=== PATIENT | female | born 1990 | race Two or more races ===

== ENCOUNTER 2019-01-17 20:41 | Emergency (ER) | payer OTHER ==
[2019-01-17 20:49] VITALS: BP 105/64; PULSE 100; TEMP 98.4; BMI 27.1
[2019-01-17] MEDS ORDERED: SODIUM CHLORIDE 0.9% 500 ML INFUS.BAG IV ONE (21:18)
[2019-01-17] MEDS ORDERED: ACETAMINOPHEN 325 MG TABLET (FP) PO ONE (21:18)
[2019-01-17 21:26] LABS: EOS % 2.4 % (0-4.5); HEMOGLOBIN 12.1 GM/dL (10.7-15.3); LYMPH % 51.7 % (8-40); MCH 27.1 pg (25.7-33.7); MCHC 32.7 g/dl (32.0-36.0); MEAN PLT VOLUME 9.8 fl (7.5-11.1); NEUT % 34.9 % (42.8-82.8); PLATELET COUNT 207 K/MM3 (134-434); RBC 4.45 M/mm3 (3.60-5.2); RDW 16.2 % (11.6-15.6); WHITE BLOOD COUNT 3.6 K/mm3 (4.0-10.0)
[2019-01-17] MEDS ORDERED: ACETAMINOPHEN 325 MG TABLET (FP) ONE (21:30)
[2019-01-17 21:32] LABS: PH,URINE 6.5 (5.0-8.0); URINE APPEARANCE CLEAR; URINE BILIRUBIN NEGATIVE (NEGATIVE); URINE COLOR YELLOW; URINE GLUCOSE (UA) NEGATIVE (NEGATIVE); URINE KETONE NEGATIVE (NEGATIVE); URINE LEUK ESTERASE NEGATIVE (NEGATIVE); URINE NITRITE NEGATIVE (NEGATIVE); URINE PROTEIN NEGATIVE (NEGATIVE)
--- NOTE | 2019-01-17 21:32 | PDOC ---
History of Present Illness - General Chief Complaint: Vaginal Bleeding Stated Complaint: VAGINAL BLEEDING (5 WEEKS ) Time Seen by Provider: 01/17/19 20:59 - History of Present Illness Initial Comments: Mckayla Wise is a 28yo woman at 4w6d gestation by LMP (12/15/18) who presents reporting suprapubic and low back pain that started about 2 hours ago. She reports that she found out she was yesterday, and she had a urine test at a doctor's office (urgent care?). At that time she had no pain or bleeding. Today, she felt well all day until 2 hours ago when she had onset of 10/10, cramping, waxing/waning suprapubic pain. The pain never resolved but did intermittently improve. She does not believe the pain was related to eating, bowel movements, position, or movement. She additionally noticed some brown vaginal spotting when she used the bathroom and later saw a small amount of red blood on a pad. Following that, she saw brown spotting again. The bleeding has since resolved. Other than the pain today, Ms Wise denies any recent n/v/d/c, fever or chills , change in diet, dysuria, vaginal discharge, or other recent symptoms. She started a vitamin yesterday but takes no other medications at home. Past History - Past Medical History Allergies/Adverse Reactions: Allergies Allergy/AdvReac Type Severity Reaction Status Date / Time No Known Allergies Allergy Verified 01/17/19 20:51 Home Medications: Ambulatory Orders NK [No Known Home Medication] 01/17/19 COPD: No - Reproductive History Is Patient Now?: No (unknown) Therapeutic (s) & number: No (unknown) - Psycho Social/Smoking Cessation Hx Smoking History: Never smoked Hx Alcohol Use: No Drug/Substance Use Hx: No Review of Systems - Review of Systems Comments:: General: No fevers, no chills, no weight or appetite change, no malaise HEENT: No changes in vision, no changes in hearing, no congestion, no sore throat CV: No chest pain, no palpitations, no LE edema Pulm: No SOB, no cough, no wheezing GI: No nausea or vomiting, no change in bowel habits, no melena : No frequency, no urgency, no dysuria. See HPI Musc: No back pain, no joint swelling, no recent injury Skin: No rash, no lesions, no erythema Endo: No excessive thirst, no heat/cold intolerance Heme: No unusual bruising or bleeding, no swollen glands Neuro: No syncope, no numbness/tingling, no focal weakness Vasc: No claudication Psych: No recent change in mood, no SI or HI *Physical Exam - Vital Signs Last Vital Signs Temp Pulse Resp BP Pulse Ox 98.4 F 100 H 20 105/64 100 01/17/19 20:43 01/17/19 20:43 01/17/19 20:43 01/17/19 20:43 01/17/19 20:43 - Physical Exam Comments: General: Comfortable, no acute distress HEENT: PERRL, EOMI, MMM, voice normal, normal neck ROM, no LAD Cards: RRR, no murmur appreciated Pulm: Comfortable on room air, clear to auscultation bilaterally Abd: Soft, nondistended. moderate suprapubic and LLQ tenderness to deep palpation, no rigidity, no rebound or guarding. : No CVA tenderness. External genitalia without lesions, no blood visualized. Mucoid discharge in vaginal canal but no blood seen. Os closed to palpation. General discomfort with exam but no CMT. Ext: Atraumatic. No LE edema. ROM intact. WWP Skin: Normal color, no rashes or lesions Neuro: A&Ox3, CN grossly intact, normal speech, motor/sensory grossly intact and symmetric Psych: Mood appropriate to situation ED Treatment Course - LABORATORY CBC & Chemistry Diagram: 01/17/19 21:13 01/17/19 21:13 - ADDITIONAL ORDERS Additional order review: 01/17/19 21:13 RBC 4.45 MCV 83.0 MCHC 32.7 RDW 16.2 H MPV 9.8 Neutrophils % 34.9 L Lymphocytes % 51.7 H Monocytes % 10.0 Eosinophils % 2.4 Basophils % 1.0 - RADIOLOGY Radiology Studies Ordered: Category Date Time Status TRANSVAGINAL US PREG [US] Stat Ultrasound 01/17/19 21:03 Ordered Medical Decision Making - Medical Decision Making 01/17/19 21:31 Mckayla Wise is a 28yo woman at 4w6d gestation by LMP (12/15/18) who presents reporting suprapubic and low back pain that started about 2 hours ago along with a small amount of brown to red vaginal spotting. - Ddx includes threatened v inevitable v complete , normal , menstruation w/ false positive test, UTI, ovarian cyst. Less likely cervicitis given report of no vaginal discharge. Less likely intraabdominal pathology without any GI symptoms. - CBC, CMP, T&S, bHCG, UA, UCx, TVUS - Acetaminophen 01/17/19 22:23 - Labs completed. Notable for bHCG 530. Otherwise unremarkable - UA negative - Pt taken for TVUS 01/17/19 22:53 - US completed, reviewed in ED. Endometrial stripe 1.97cm. No IUP visualized - Blood type A+. No need for rhogam - Will reassess. If pain improved, will likely d/c home with 48hr follow up for repeat bHCG and US 01/18/19 00:07 - US report confirms thickened endometrial stripe but no IUP seen - Pt instructed to return for repeat bHCG in 2-3 days. She states understanding and agreement. Advised regarding home care, follow up, return precautions at length. Discussed with Dr Chevy Pike PGY2 Discharge - Discharge Information Problems reviewed: Yes Clinical Impression/Diagnosis: Vaginal bleeding affecting early Condition: Stable - Admission No - Follow up/Referral Referrals: Ladonna Ramesh MD [Staff Physician] - Arabella Kern DO [Staff Physician] - Sheryl Saunders MD [Staff Physician] - [facility] [Provider Group] - Patient Discharge Instructions Patient Printed Discharge Instructions: DI for -- Discomforts and Remedies, DI for Vaginal Bleeding During Additional Instructions: Discharge Instructions: You were seen in the emergency deparmtent for abdominal pain and vaginal bleeding during early . Your pain improved with acetaminophen (Tylenol) . Your blood tests did not show any concerning abnormalities. Your hormone level was 530. This is too low for the baby to be seen on ultrasound, but there were no concerns seen on your ultrasound. Home Care: - You need to return to the ED in 48-72 hours, on Saturday or Saturday, for a repeat hormone test. You may also need a repeat ultrasound at that time - You may take 650-1000mg acetaminophen (Tylenol) every 6-8 hours as needed for pain - Consider using hot packs or a hot water bottle for cramping pain - Call to make an appointment with an dry charge process attendant within the next 1-2 weeks - Seek immediate care for worsening symptoms, severe abdominal pain, heavy bleeding that soaks through multiple pads, if you pass tissue, if you faint, if you have chest pain or difficulty breathing, or if you have any other medical emergency. - Post Discharge Activity
[2019-01-17 21:44] LABS: ALBUMIN 3.8 g/dl (3.4-5.0); BILIRUBIN,TOTAL 0.6 mg/dL (0.2-1); CALCIUM 8.5 mg/dL (8.5-10.1); CREATININE 0.6 mg/dL (0.55-1.3); POTASSIUM 3.8 mmol/L (3.5-5.1)
== END 2019-01-18 00:08 | disposition home or self-care (01) ==
LOC: JER 20:41
DX: O26.891 Other specified pregnancy related conditions, first trimester (principal); O20.8 Other hemorrhage in early pregnancy; Z3A.01 Less than 8 weeks gestation of pregnancy
CPT/HCPCS: 36415; 76817-TC; 80053; 81003; 84702; 85025; 86850; 86900; 86901; 87086; 99282-25

== ENCOUNTER 2019-01-25 13:48 | Emergency (ER) | payer OTHER ==
[2019-01-25 13:55] VITALS: TEMP 97; BMI 27.1
--- NOTE | 2019-01-25 14:41 | PDOC ---
History of Present Illness <Veronica Solorzano - Last Filed: 01/25/19 16:02> - General History Source: Patient Exam Limitations: No Limitations - History of Present Illness Initial Comments: 01/25/19 18:17 HPI: 28F w/o PMH presenting w/ dark red / brown vaginal bleeding x 7 days w/ abdominal cramping. Denies soaking a pad at anytime. Pt was seen in this ED when the sx first started but was not able to f/u w/ RULING MACHINE SET UP OPERATOR or w/ her hCG due to work schedule. States she passed small white clumps today. Denies f/c, cp/sob, n /v, cp/sob, dysuria/frequency. LMP 9/23. 7 weeks gestation. <Clive Hood - Last Filed: 01/25/19 18:18> - General Chief Complaint: Vaginal Bleeding Stated Complaint: VAGINAL BLEEDING (7WEEKS ) Time Seen by Provider: 01/25/19 14:21 Past History <Veronica Solorzano - Last Filed: 01/25/19 16:02> - Past Medical History COPD: No - Reproductive History Therapeutic (s) & number: No (unknown) - Psycho Social/Smoking Cessation Hx Smoking History: Never smoked Hx Alcohol Use: No Drug/Substance Use Hx: No <Clive Hood - Last Filed: 01/25/19 18:18> - Past Medical History Allergies/Adverse Reactions: Allergies Allergy/AdvReac Type Severity Reaction Status Date / Time No Known Allergies Allergy Verified 01/25/19 13:53 Home Medications: Ambulatory Orders NK [No Known Home Medication] 01/17/19 Review of Systems - Review of Systems Comments:: 01/25/19 18:17 ROS: CONSTITUTIONAL: Endorses generalized weakness. Denies F / C HEENT: Endorses occasional dizziness RESP: Denies SOB, cough, orthopnea, HAWKINS CARD: Denies chest pain, palpitations GI: Denies N / V / D, inability to tolerate PO : Endorses vaginal bleeding, . Denies dysuria, frequency SKIN: Denies rashes NEURO: Denies numbness, tingling, weakness <Clive Hood - Last Filed: 01/25/19 18:18> *Physical Exam - Vital Signs Last Vital Signs Temp Pulse Resp BP Pulse Ox 97 F L 86 18 103/57 L 100 01/25/19 13:51 01/25/19 13:51 01/25/19 13:51 01/25/19 13:51 01/25/19 13:51 - Physical Exam Comments: 01/25/19 16:02 Pelvic Exam (performed by VICKI Solorzano) External genitalia normal without lesions. Vaginal vault with mild thin brown/ white fluid, no blood clots or bright red blood noted. Cervix is long and closed. No cervical motion tenderness. Uterus is retroverted and nontender and normal in size. Right adnexa is nontender and without masses. Left adnexa with mild discomfort upon palpation and without masses. <Veronica Solorzano - Last Filed: 01/25/19 16:02> - Vital Signs Last Vital Signs Temp Pulse Resp BP Pulse Ox 97 F L 86 18 103/57 L 100 01/25/19 13:51 01/25/19 13:51 01/25/19 13:51 01/25/19 13:51 01/25/19 13:51 - Physical Exam Comments: 01/25/19 18:18 PE: GEN: Pale appearing, NAD, comfortable. AAOx3 HEENT: NC/AT, EOMI, PERRLA. No facial asymmetry. Normal voice. Supple neck w/ FROM. BACK: No TTP midline or paraspinal, no step-offs or deformities CV: S1/S2, RRR, no m/r/g LUNG: CTAB, no wheezes, crackles, rales, rhonchi. GI: soft, ndnt, +BS, no guarding, no rebound. No masses. Neg CVAT b/l. EXTREMITIES: 2+ distal pulses. No LE edema. No obvious deformities of all extremities. SKIN: warm, dry, normal turgor PSYCH: normal mood and affect NEURO: Moving all extremities well. <Clive Hood - Last Filed: 01/25/19 18:18> ED Treatment Course - LABORATORY CBC & Chemistry Diagram: 01/25/19 14:49 01/25/19 14:43 - ADDITIONAL ORDERS Additional order review: Laboratory Results 01/25/19 01/25/19 01/25/19 14:49 14:49 14:43 Sodium 137 Potassium 4.1 Chloride 106 Carbon Dioxide 26 Anion Gap 5 L BUN 7.7 Creatinine 0.6 Est GFR (CKD-EPI)AfAm 144.78 Est GFR (CKD-EPI)NonAf 124.92 Random Glucose 95 Calcium 8.7 Total Bilirubin 0.7 AST 13 L ALT 15 Alkaline Phosphatase 46 Total Protein 7.1 Albumin 3.9 Urine Color Yellow Urine Appearance Clear Urine pH 6.5 Ur Specific [place] 1.016 Urine Protein Negative Urine Glucose (UA) Negative Urine Ketones Negative Urine Blood Trace Urine Nitrite Negative Urine Bilirubin Negative Urine Urobilinogen 0.2 Ur Leukocyte Esterase 1+ H Urine WBC (Auto) 6 Urine RBC (Auto) 1 Urine Casts (Auto) 1 U Epithel Cells (Auto) 4.0 Urine Bacteria (Auto) 32.9 Blood Type A POSITIVE Antibody Screen Negative 01/25/19 14:49 RBC 4.31 MCV 84.1 MCHC 34.5 RDW 16.8 H MPV 10.2 Neutrophils % 46.4 D Lymphocytes % 41.4 H Monocytes % 8.9 Eosinophils % 2.5 Basophils % 0.8 - Medications Given in the ED: ED Medications Discontinued Medications Generic Name Dose Route Start Last Admin Trade Name Freq PRN Reason Stop Dose Admin Sodium Chloride 1,000 ml 01/25/19 14:42 01/25/19 15:07 Normal Saline - IV 01/25/19 14:43 1,000 ml ONCE ONE Administration <Veronica Solorzano - Last Filed: 01/25/19 16:02> - LABORATORY CBC & Chemistry Diagram: 01/25/19 14:49 01/25/19 14:43 <Clive Hood - Last Filed: 01/25/19 18:18> Medical Decision Making - Medical Decision Making 01/25/19 14:52 MDM: 28F LMP 12/15 at 7 weeks gestation presenting w/ continued vaginal bleeding and abdominal cramping. - CBC, CMP, T&S, hCG - UA - TVUS 01/25/19 15:27 Pt requesting female examiner per sikhism beliefs 01/25/19 15:59 Pelvic exam by VICKI Solorzano, note to follow labs reviewed f/u TVUS f/u hCG hCG 8000 TVUS demonstrating a single IUP at 5 weeks w/o pole Pt discharged home w/ DENTAL LABORATORY MANAGER f/u and return precautions - The importance of RULING MACHINE SET UP OPERATOR f/u was stressed <Clive Hood - Last Filed: 01/25/19 18:18> Discharge <Veronica Solorzano - Last Filed: 01/25/19 16:02> - Discharge Information Problems reviewed: Yes - Admission No <Clive Hood - Last Filed: 01/25/19 18:18> - Discharge Information Clinical Impression/Diagnosis: Vaginal bleeding affecting early Condition: Stable Disposition: HOME - Follow up/Referral Referrals: Danielle Garcia MD [Staff Physician] - Adolfo Christensen DO [Primary Care Provider] - [facility] [Outside] - Patient Discharge Instructions Patient Printed Discharge Instructions: DI for Vaginal Bleeding During Additional Instructions: A copy of the ultrasound report has been provided to you. FOLLOW UP with an DENTAL LABORATORY MANAGER in 7 days for a repeat ultrasound and blood work. We have referred you to two providers that you can receive your DENTAL LABORATORY MANAGER care, please call and schedule an appointment. Your hCG was 8000 today 01/25/19. Immediately return to the ED if you experience any of the following: - heavy bleeding (soaking 1 pad per hour for 2 hours straight) - chest pain, palpitations, shortness of breath - severe abdominal pain - ANYTHING that concerns you - Post Discharge Activity
[2019-01-25] MEDS ORDERED: SODIUM CHLORIDE 0.9% 500 ML INFUS.BAG IV ONE (14:42)
[2019-01-25 14:59] LABS: BASO % 0.8 % (0-2.0); EOS % 2.5 % (0-4.5); HEMATOCRIT 36.3 % (32.4-45.2); HEMOGLOBIN 12.5 GM/dL (10.7-15.3); LYMPH % 41.4 % (8-40); MCH 29.1 pg (25.7-33.7); MCHC 34.5 g/dl (32.0-36.0); MEAN CELL VOLUME 84.1 fl (80-96); MEAN PLT VOLUME 10.2 fl (7.5-11.1); MONO % 8.9 % (3.8-10.2); NEUT % 46.4 % (42.8-82.8); PLATELET COUNT 193 K/MM3 (134-434); RBC 4.31 M/mm3 (3.60-5.2); RDW 16.8 % (11.6-15.6); WHITE BLOOD COUNT 4.6 K/mm3 (4.0-10.0)
[2019-01-25 15:21] LABS: HYALINE CASTS 1 /lpf (0-8); PH,URINE 6.5 (5.0-8.0); URINE APPEARANCE CLEAR; URINE BACTERIA 32.9 /hpf (NEGATIVE); URINE BILIRUBIN NEGATIVE (NEGATIVE); URINE COLOR YELLOW; URINE GLUCOSE (UA) NEGATIVE (NEGATIVE); URINE KETONE NEGATIVE (NEGATIVE); URINE LEUK ESTERASE 1+ (NEGATIVE); URINE NITRITE NEGATIVE (NEGATIVE); URINE PROTEIN NEGATIVE (NEGATIVE); URINE RBC 1 /hpf (0-4); URINE UROBILINOGEN 0.2 mg/dL (0.2-1.0); URINE WBC 6 /hpf (0-5)
[2019-01-25 15:25] LABS: ALBUMIN 3.9 g/dl (3.4-5.0); BILIRUBIN,TOTAL 0.7 mg/dL (0.2-1); BLOOD UREA NITROGEN 7.7 mg/dL (7-18); CALCIUM 8.7 mg/dL (8.5-10.1); CREATININE 0.6 mg/dL (0.55-1.3); POTASSIUM 4.1 mmol/L (3.5-5.1); TOT PROT 7.1 g/dl (6.4-8.2)
--- NOTE | 2019-01-25 16:39 | PDOC ---
Documentation entered by Ryan Lugo SCRIBE, acting as scribe for Amari Be MD. Amari Be MD: This documentation has been prepared by the Parish freed Daniel, SCRIBE, under my direction and personally reviewed by me in its entirety. I confirm that the documentation accurately reflects all work, treatment, procedures, and medical decision making performed by me. Attending Attestation - Resident Resident Name: Clive Hood - ED Attending Attestation I have performed the following: I have examined & evaluated the patient, The case was reviewed & discussed with the resident, I agree w/resident's findings & plan, Exceptions are as noted - HPI HPI: 01/25/19 14:51 The patient is a 28 year old female with no past medical history here today for evaluation of vaginal bleeding. The patient reports that she 5 weeks 6 days (LMP 12/15/18) and has had dark brown now light red vaginal bleeding for 7 days. She notes going through several pads throughout the day, abdominal cramping, low back pain, dizziness, and generalized weakness. Patient also notes watery vaginal discharge and states that her pads are very wet when she changes them. The patient was seen a few days ago for similar symptoms. Patient denies headache. Denies fever, chills. Denies chest pain, shortness of breath. Denies nausea, vomiting, diarrhea. Allergies: PCP: Adolfo Christensen - Physicial Exam PE: 01/25/19 15:42 GENERAL: The patient is awake, alert, and fully oriented, Nontoxic - in no acute distress. ABDOMEN: Soft, minimal lower abdominal tenderness, No guarding, no rebound. No CVA tenderness EXTREMITIES: Normal range of motion, no edema. NEUROLOGICAL: No facial assymetry, Normal speech, PSYCH: Normal mood, normal affect. SKIN: Warm, Dry, normal turgor, - Medical Decision Making 01/25/19 14:43 28y F at approx 7 weeks gestation presents with dark red/brown spotting that has persiseted associaed with abd cramping and low back pain. Pt endorses engeralized weakness w/o n/v, f/c, cp, sob, palpations. dx - threatened ab vs completed ab pt erquests female examainer - exam pending 01/25/19 16:[address] garcia and evening team awaiting tvus beta rising apprpriately
[2019-01-25 17:42] VITALS: BP 120/72; PULSE 89
== END 2019-01-25 17:30 | disposition home or self-care (01) ==
LOC: JER 13:48
DX: O26.891 Other specified pregnancy related conditions, first trimester (principal); O20.0 Threatened abortion; Z3A.01 Less than 8 weeks gestation of pregnancy
CPT/HCPCS: 36415; 76830-TC; 80053; 81003; 84702; 85025; 86850; 86900; 86901; 99284-25

== ENCOUNTER 2019-02-12 14:30 | Emergency (ER) | payer OTHER ==
[2019-02-12 14:37] VITALS: BMI 27.1
--- NOTE | 2019-02-12 14:37 | PDOC ---
Rapid Medical Evaluation Time Seen by Provider: 02/12/19 14:36 Medical Evaluation: Allergies Allergy/AdvReac Type Severity Reaction Status Date / Time No Known Allergies Allergy Verified 01/25/19 13:53 02/12/19 14:36 I have performed a brief in-person evaluation of this patient. The patient presents with a chief complaint of: 8 weeks , vomiting Pertinent physical exam findings:stable and in NAD, non-focal I have ordered the following:labs The patient will proceed to the ED for further evaluation.
[2019-02-12] MEDS ORDERED: SODIUM CHLORIDE 1,000 ML IV STA (15:23)
[2019-02-12] MEDS ORDERED: METOCLOPRAMIDE HCL INJECTION 10 MG/2 ML VIAL IVPUSH ONE (15:23)
--- NOTE | 2019-02-12 15:24 | PDOC ---
History of Present Illness - General Chief Complaint: Nausea/Vomiting Stated Complaint: EIGHT WK ID/VOMITING Time Seen by Provider: 02/12/19 14:36 History Source: Patient Exam Limitations: No Limitations - History of Present Illness Initial Comments: 02/12/19 15:17 28 yo [id number] 8 weeks (LMP Dec 15) comes in c/o 1 week of NBNB vomiting, unable to keep solids and liquids down. Also c/o diffuse pounding headache which started 2 days ago, started as a mild headache and progressively getting worse, (+)lightheadedness. (+)decrease in urination, only urinated once today. No burning/pain on urination, (+)dark yellow urine. No fever/chills, no diarrhea, no abdominal pain but c/o 2 days of spotting, no vaginal bleeding. No known sick contacts, no recent travel. Past History - Past Medical History Allergies/Adverse Reactions: Allergies Allergy/AdvReac Type Severity Reaction Status Date / Time No Known Allergies Allergy Verified 02/12/19 14:37 Home Medications: Ambulatory Orders NK [No Known Home Medication] 01/17/19 COPD: No - Reproductive History (#): 1 Para: 0 Therapeutic (s) & number: No (unknown) - Psycho Social/Smoking Cessation Hx Smoking History: Never smoked Hx Alcohol Use: No Drug/Substance Use Hx: No Review of Systems - Review of Systems Able to Perform ROS?: Yes Constitutional: No: Chills, Fever, Malaise, Night Sweats HEENTM: No: Eye Pain, Recent change in vision, Throat Pain Respiratory: No: Cough, Shortness of Breath Cardiac (ROS): No: Chest Pain, Palpitations, Chest Tightness ABD/GI: Yes: Nausea, Vomiting. No: Diarrhea, Abdominal cramping : No: Dysuria, Hematuria Musculoskeletal: No: Back Pain Integumentary: No: Rash Neurological: Yes: Headache. No: Numbness, Dizziness Psychiatric: Yes: Change in Appetite Endocrine: No: Unexplained Weight Loss *Physical Exam - Vital Signs Last Vital Signs Temp Pulse Resp BP Pulse Ox 98 F 110 H 18 114/60 100 02/12/19 14:32 02/12/19 14:32 02/12/19 14:32 02/12/19 14:32 02/12/19 14:32 - Physical Exam General Appearance: Yes: Nourished, Other (Dry mucous membranes). No: Apparent Distress HEENT: positive: SHUKRI, Normal ENT Inspection, Normal Voice, Other (Dry mucous membranes). negative: Pale Conjunctivae, Scleral Icterus (R), Scleral Icterus ( L) Neck: positive: Supple. negative: Decreased range of motion, Tender midline Respiratory/Chest: positive: Lungs Clear, Normal Breath Sounds. negative: Respiratory Distress, Accessory Muscle Use Cardiovascular: positive: Regular Rhythm, Regular Rate Gastrointestinal/Abdominal: positive: Normal Bowel Sounds, Soft. negative: Tender Musculoskeletal: positive: Normal Inspection. negative: CVA Tenderness, Decreased Range of Motion Extremity: positive: Normal Capillary Refill, Normal Inspection, Normal Range of Motion. negative: Tender, Pedal Edema Integumentary: positive: Normal Color, Dry. negative: Jaundice, Rash Neurologic: positive: Fully Oriented, Alert, Normal Mood/Affect Medical Decision Making - Medical Decision Making 02/12/19 15:22 28 yo F w/ vomiting and spotting in , will line and lab, give IV fluids , reglan, benadryl, will do a TVS and reassess 02/12/19 15:55 Change of shift, care of patient signed over to COLD HEADER OPERATOR Bry who will follow up labs , TVS, reassess and decide on dsispo plan. Discharge - Discharge Information Problems reviewed: Yes Clinical Impression/Diagnosis: Vomiting affecting - Follow up/Referral Referrals: Adolfo Christensen DO [Primary Care Provider] - - Patient Discharge Instructions - Post Discharge Activity
[2019-02-12] MEDS ORDERED: METOCLOPRAMIDE HCL INJECTION 10 MG/2 ML VIAL ONE (15:36)
[2019-02-12 16:32] LABS: BASO % 0.4 % (0-2.0); EOS % 0.2 % (0-4.5); HEMATOCRIT 40.7 % (32.4-45.2); HEMOGLOBIN 13.8 GM/dL (10.7-15.3); LYMPH % 14.7 % (8-40); MCH 28.8 pg (25.7-33.7); MEAN CELL VOLUME 84.9 fl (80-96); MEAN PLT VOLUME 10.1 fl (7.5-11.1); MONO % 4.5 % (3.8-10.2); NEUT % 80.2 % (42.8-82.8); PLATELET COUNT 194 K/MM3 (134-434); RDW 15.6 % (11.6-15.6); WHITE BLOOD COUNT 5.5 K/mm3 (4.0-10.0)
[2019-02-12 17:32] LABS: BLOOD UREA NITROGEN 10.1 mg/dL (7-18); CALCIUM 9.7 mg/dL (8.5-10.1); CREATININE 0.5 mg/dL (0.55-1.3); POTASSIUM 4.2 mmol/L (3.5-5.1)
[2019-02-12] MEDS ORDERED: DEXTROSE 5%-NORMAL SALINE 1,000 ML IV ONE (17:57)
[2019-02-12 18:56] LABS: URINE APPEARANCE CLEAR; URINE BILIRUBIN NEGATIVE (NEGATIVE); URINE COLOR YELLOW; URINE GLUCOSE (UA) NEGATIVE (NEGATIVE); URINE KETONE 4+ (NEGATIVE); URINE LEUK ESTERASE NEGATIVE (NEGATIVE); URINE NITRITE NEGATIVE (NEGATIVE); URINE PROTEIN NEGATIVE (NEGATIVE); URINE UROBILINOGEN 0.2 mg/dL (0.2-1.0)
--- NOTE | 2019-02-12 19:19 | PDOC ---
*Physical Exam - Vital Signs Last Vital Signs Temp Pulse Resp BP Pulse Ox 98 F 110 H 18 114/60 100 02/12/19 14:32 02/12/19 14:32 02/12/19 14:32 02/12/19 14:32 02/12/19 14:32 - Physical Exam General Appearance: Yes: Appropriately Dressed. No: Apparent Distress HEENT: positive: Normal ENT Inspection Neck: positive: Trachea midline, Supple Respiratory/Chest: positive: Lungs Clear, Normal Breath Sounds. negative: Respiratory Distress, Accessory Muscle Use Cardiovascular: positive: Regular Rhythm, Regular Rate. negative: Murmur Gastrointestinal/Abdominal: positive: Normal Bowel Sounds, Soft. negative: Tender ED Treatment Course - LABORATORY CBC & Chemistry Diagram: 02/12/19 14:09 02/12/19 14:09 - ADDITIONAL ORDERS Additional order review: Laboratory Results 02/12/19 02/12/19 02/12/19 18:30 14:09 14:09 Sodium 134 L Potassium 4.2 Chloride 105 Carbon Dioxide 16 L Anion Gap 14 BUN 10.1 Creatinine 0.5 L Est GFR (CKD-EPI)AfAm 153.73 Est GFR (CKD-EPI)NonAf 132.64 Random Glucose 67 L Calcium 9.7 Phosphorus 4.0 Magnesium 2.0 Beta HCG, Quant 751383.5 Urine Color Yellow Urine Appearance Clear Urine pH 5.0 D Ur Specific [place] 1.022 Urine Protein Negative Urine Glucose (UA) Negative Urine Ketones 4+ H Urine Blood Negative Urine Nitrite Negative Urine Bilirubin Negative Urine Urobilinogen 0.2 Ur Leukocyte Esterase Negative Blood Type A POSITIVE Antibody Screen Negative 02/12/19 14:09 RBC 4.80 MCV 84.9 MCHC 34.0 RDW 15.6 MPV 10.1 Neutrophils % 80.2 D Lymphocytes % 14.7 D Monocytes % 4.5 Eosinophils % 0.2 D Basophils % 0.4 - Medications Given in the ED: ED Medications Discontinued Medications Generic Name Dose Route Start Last Admin Trade Name Freq PRN Reason Stop Dose Admin Diphenhydramine HCl 25 mg 02/12/19 15:23 02/12/19 16:00 Benadryl Injection - IVPUSH 02/12/19 15:24 25 mg ONCE ONE Administration Sodium Chloride 1,000 mls @ 1,000 mls/hr 02/12/19 15:23 02/12/19 16:00 Normal Saline - IV 02/12/19 16:22 1,000 mls/hr ASDIR STA Administration Metoclopramide HCl 10 mg 02/12/19 15:23 02/12/19 16:00 Reglan Injection - IVPUSH 02/12/19 15:24 10 mg ONCE ONE Administration ED Progress Note - Progress Note Progress Note: 02/12/19 19:18 Received signout from VICKI Fontanez. Briefly this is a 28-year-old primigravida who presents to the emergency department with headache, nausea and vomiting. Patient has received Reglan and Benadryl for her headache as well as 1 L of IV normal saline. Laboratory testing so far is unremarkable Patient is pending ultrasound, urine studies for disposition 02/12/19 19:24 Medical Decision Making - Medical Decision Making 02/12/19 19:18 Transvaginal ultrasound is read by Dr. Schroeder: Single viable intrauterine gestation at approximately 8 weeks 0 days. heart rate 173 bpm. A 1.7 cm right ovarian cyst is seen containing intraluminal debris/blood. No Doppler evidence of right ovarian torsion. The left ovary cannot be definitively visualized. Urinalysis notable for 4+ ketones. Patient is currently pain-free after receiving fluids, Benadryl and Reglan. Patient is tolerating p.o.'s without difficulty. I will discharge the patient home with prescription for likely just instructions to follow-up with her nurse practitioner hospitalist as previously scheduled next week. Discharge - Discharge Information Problems reviewed: Yes Clinical Impression/Diagnosis: Vomiting affecting Condition: Stable Disposition: HOME - Admission No - Additional Discharge Information Prescriptions: Doxylamine Succinate/Vit B6 [Renee Farias 10-10 mg Tablet] 1 each PO HS #14 tablet. - Follow up/Referral Referrals: Adolfo Christensen DO [Primary Care Provider] - - Patient Discharge Instructions Patient Printed Discharge Instructions: DI for Vomiting -- Adult Additional Instructions: Continue vitamins. It well-balanced diet. Keep well-hydrated. Take likely just 10 mg every night to help with your nausea. Follow-up with your nurse practitioner hospitalist as previously scheduled. Return to the emergency department for any new or worsening symptoms. Thank you very much for choosing us to provide your emergent health care needs. - Post Discharge Activity
[2019-02-12 19:38] VITALS: BP 99/63; PULSE 89; TEMP 98.1
== END 2019-02-12 19:32 | disposition home or self-care (01) ==
LOC: JER 14:30
PROC: 3E033GC Introduction of Other Therapeutic Substance into Peripheral Vein, Percutaneous Approach (ICD-10-PCS; principal; 2019-02-12)
PROC: 3E033GC Introduction of Other Therapeutic Substance into Peripheral Vein, Percutaneous Approach (ICD-10-PCS; 2019-02-12)
DX: O26.891 Other specified pregnancy related conditions, first trimester (principal); O21.0 Mild hyperemesis gravidarum; O34.81 Maternal care for other abnormalities of pelvic organs, first trimester; N83.291 Other ovarian cyst, right side; Z3A.08 8 weeks gestation of pregnancy
CPT/HCPCS: 36415; 76801-TC; 80048; 81003; 83735; 84100; 84702; 85025; 86850; 86900; 86901; 87086; 99282-25; J7030